=== PATIENT | female | born 1940 | race Caucasian/White ===

== ENCOUNTER 2023-08-04 08:26 | Inpatient (IN) ==
[2023-08-04 09:30] LABS: Hematocrit 34.4 % (35-45); Hemoglobin 11.1 g/dL (11.5-14.3); Mean Corpuscular Hemoglobin 27.2 pg (27-33); Mean Corpuscular Hgb Conc 32.2 g/dL (31-36); Mean Corpuscular Volume 84.7 fL (80-97); Mean Platelet Volume 8.9 fL (7.5-11.2); Platelet Count 236 10^3/uL (150-450); Red Blood Count 4.07 10^6/uL (3.63-4.92); Red Cell Distribution Width 15.8 % (12-17); White Blood Count 23.2 10^3/uL (3.8-11.8)
[2023-08-04 09:33] LABS: Urine Appearance Clear; Urine Bilirubin Negative (Negative); Urine Blood 1+ (Negative); Urine Color Colorless; Urine Glucose Negative (Negative); Urine Ketones Negative (Negative); Urine Nitrite Negative (Negative); Urine Protein Negative (Negative); Urine Specific Gravity 1.005 (1.002-1.030); Urine Urobilinogen Negative (Negative)
[2023-08-04 09:48] LABS: Albumin 3.5 g/dL (3.2-5.2); Albumin/Globulin Ratio 1.2 (1-3); Calcium 7.9 mg/dL (8.6-10.3); Creatinine, Serum 0.92 mg/dL (0.51-0.95); Globulin 2.9 g/dL (2-4); Potassium 3.3 mmol/L (3.5-5.0); Total Bilirubin 0.8 mg/dL (0.2-1.0); Total Protein 6.4 g/dL (6.4-8.9); eGFR CKD-EPI 61.8 (>60)
[2023-08-04 10:40] LABS: Urine Bacteria Absent /HPF (Absent); Urine Red Blood Cell 3+(>10/hpf) /HPF (0-Trace); Urine Squamous Epithelial Cell Present /HPF (Absent); Urine White Blood Cell Trace(0-5/hpf) /HPF (0-Trace)
[2023-08-04] MEDS: Lactated Ringers 1000 ml BAG 1,000 ML IV ONE (11:00)
[2023-08-04] MEDS: Iodixanol (CONTRAST) 320 MG/ML 100 ML SDV IV ONE (12:34)
[2023-08-04] MEDS ORDERED: Albuterol HFA INHALER 8 gm MDI INH PRN (13:20)
[2023-08-04] MEDS ORDERED: Dextrose 50% Syringe 50 ml 25 GM/50 ML SYRINGE IV PUSH PRN (14:48)
[2023-08-04 17:27] LABS: PCO2 Arterial 43 mmHg (35-45); PO2 Arterial 72 mmHg (80-100)
[2023-08-04] MEDS: cefTRIAXone 2 gm/50 mL D5W 2 GM/50 ML BAG IV SCH (17:42)
[2023-08-04 18:09] LABS: Magnesium 1.5 mg/dL (1.9-2.7)
[2023-08-04] MEDS: methylPREDNISolone SOD SUCC 40 mg/ml 1 ml VIAL IV SCH (18:09)
[2023-08-04] MEDS: Potassium Chlor 20 meq TAB.ER PO ONE (18:09)
[2023-08-04] MEDS ORDERED: Albuterol/Ipratropium NEB.SOL (2.5/0.5 MG) 3 ML NEB.SOLN INH SCH (19:00)
[2023-08-04 19:01] LABS: High Sensitivity Troponin 1 Hr 575 pg/mL (<15)
[2023-08-04] MEDS: Albuterol/Ipratropium NEB.SOL (2.5/0.5 MG) 3 ML NEB.SOLN INH SCH (19:45)
[2023-08-04] MEDS: Lactated Ringers 1000 ml BAG 750 ML IV ONE (23:15)
[2023-08-05 03:58] LABS: Urine Appearance Clear; Urine Bilirubin Negative (Negative); Urine Blood 3+ (Negative); Urine Color Yellow; Urine Glucose 3+ (>=300 mg/dL) (Negative); Urine Ketones 1+ (Negative); Urine Nitrite Negative (Negative); Urine Protein 1+ (>=30 mg/dL) (Negative); Urine Specific Gravity 1.034 (1.002-1.030); Urine Urobilinogen Negative (Negative); Urine pH 5.5 (5.0-8.0)
[2023-08-05 04:13] LABS: Hematocrit 31.8 % (35-45); Hemoglobin 10.2 g/dL (11.5-14.3); Mean Corpuscular Hgb Conc 32.2 g/dL (31-36); Mean Corpuscular Volume 83.9 fL (80-97); Mean Platelet Volume 9.6 fL (7.5-11.2); Platelet Count 211 10^3/uL (150-450); Red Blood Count 3.79 10^6/uL (3.63-4.92); Red Cell Distribution Width 15.8 % (12-17); White Blood Count 18.5 10^3/uL (3.8-11.8)
[2023-08-05 04:29] LABS: Albumin 3.6 g/dL (3.2-5.2); Albumin/Globulin Ratio 1.2 (1-3); Calcium 8.9 mg/dL (8.6-10.3); Creatinine, Serum 1.19 mg/dL (0.51-0.95); Globulin 3.1 g/dL (2-4); Magnesium 1.6 mg/dL (1.9-2.7); Potassium 4.1 mmol/L (3.5-5.0); Total Bilirubin 0.6 mg/dL (0.2-1.0); Total Protein 6.7 g/dL (6.4-8.9); eGFR CKD-EPI 45.4 (>60)
[2023-08-05 04:49] LABS: Urine Bacteria Absent /HPF (Absent); Urine Red Blood Cell 3+(>10/hpf) /HPF (0-Trace); Urine Squamous Epithelial Cell Present /HPF (Absent); Urine White Blood Cell 2+(11-20/hpf) /HPF (0-Trace)
[2023-08-05] MEDS: Magnesium Sulf 4 GM/100 ML IV 4,000 MG/100 ML BAG IVPB ONE (08:34)
[2023-08-05] MEDS ORDERED: Sulfur Hexaflouride MICROSPHR 25 MG VIAL ONE (08:42)
[2023-08-05] MEDS ORDERED: Dextrose 50% Syringe 50 ml 25 GM/50 ML SYRINGE IV PUSH PRN (08:58)
[2023-08-05] MEDS: Insulin GLARGINE 100 un/ml 10 ml VIAL SUBCUT SCH (10:18)
[2023-08-05] MEDS: Potassium Chlor 20 meq TAB.ER PO ONE (10:40)
[2023-08-05] MEDS: Digoxin IV 0.5 MG/2 ML AMP (0.25 MG/ML) IV SLOW PU ONE (10:41)
[2023-08-05] MEDS: Empagliflozin 25 MG TAB PO SCH (11:54)
[2023-08-05 12:00] LABS: TSH Ultra Thyroid Stim Horm 0.25 mcIU/mL (0.34-5.60)
[2023-08-05 12:34] LABS: High Sensitivity Troponin 1 Hr 131 pg/mL (<15)
[2023-08-05 14:06] LABS: T4, Total 8.72 mcg/dL (6.09-12.23)
[2023-08-05 14:16] LABS: Total T3 72 ng/dL (87-178)
[2023-08-06 04:39] LABS: Hematocrit 30.9 % (35-45); Hemoglobin 10.1 g/dL (11.5-14.3); Mean Corpuscular Hemoglobin 27.2 pg (27-33); Mean Corpuscular Hgb Conc 32.7 g/dL (31-36); Mean Corpuscular Volume 83.2 fL (80-97); Platelet Count 248 10^3/uL (150-450); Red Blood Count 3.71 10^6/uL (3.63-4.92); Red Cell Distribution Width 15.9 % (12-17); White Blood Count 29.5 10^3/uL (3.8-11.8)
[2023-08-06 04:56] LABS: Calcium 9.2 mg/dL (8.6-10.3); Creatinine, Serum 1.15 mg/dL (0.51-0.95); Magnesium 2.5 mg/dL (1.9-2.7); Potassium 4.5 mmol/L (3.5-5.0); eGFR CKD-EPI 47.3 (>60)
[2023-08-06] MEDS: methylPREDNISolone SOD SUCC 40 mg/ml 1 ml VIAL IV SCH (08:54)
[2023-08-07 04:20] LABS: Hematocrit 35.3 % (35-45); Hemoglobin 11.4 g/dL (11.5-14.3); Mean Corpuscular Hemoglobin 26.9 pg (27-33); Mean Corpuscular Hgb Conc 32.2 g/dL (31-36); Mean Corpuscular Volume 83.5 fL (80-97); Mean Platelet Volume 8.6 fL (7.5-11.2); Platelet Count 286 10^3/uL (150-450); Red Blood Count 4.23 10^6/uL (3.63-4.92); Red Cell Distribution Width 15.9 % (12-17); White Blood Count 26.9 10^3/uL (3.8-11.8)
[2023-08-07 04:37] LABS: Calcium 9.4 mg/dL (8.6-10.3); Creatinine, Serum 1.16 mg/dL (0.51-0.95); Magnesium 2.2 mg/dL (1.9-2.7); Potassium 4.4 mmol/L (3.5-5.0); eGFR CKD-EPI 46.8 (>60)
[2023-08-07] MEDS: Furosemide 40 mg/4 ml IV VIAL IV SLOW PU ONE (08:29)
[2023-08-07] MEDS: Furosemide 40 mg/4 ml IV VIAL ONE (08:29)
[2023-08-07] MEDS: Albuterol/Ipratropium NEB.SOL (2.5/0.5 MG) 3 ML NEB.SOLN INH PRN (08:30)
[2023-08-07] MEDS: Metoprolol Tartrate 5 mg VIAL 5 ml VIAL (1 mg/ml) ONE (08:36)
[2023-08-07] MEDS: Metoprolol Tartrate 5 mg VIAL 5 ml VIAL (1 mg/ml) IV ONE (08:37)
[2023-08-07 08:54] LABS: .Transferrin 215 mg/dL (203-362); Total Iron Binding Capacity 301 mcg/dL (250-450)
[2023-08-07 09:00] LABS: Ferritin 200.5 ng/mL (11-307)
[2023-08-08 05:55] LABS: Hematocrit 35.8 % (35-45); Hemoglobin 11.7 g/dL (11.5-14.3); Mean Corpuscular Hemoglobin 27.3 pg (27-33); Mean Corpuscular Hgb Conc 32.5 g/dL (31-36); Mean Corpuscular Volume 84.1 fL (80-97); Mean Platelet Volume 8.8 fL (7.5-11.2); Platelet Count 257 10^3/uL (150-450); Red Blood Count 4.26 10^6/uL (3.63-4.92); Red Cell Distribution Width 15.6 % (12-17); White Blood Count 20.9 10^3/uL (3.8-11.8)
[2023-08-08 06:11] LABS: Albumin 3.6 g/dL (3.2-5.2); Albumin/Globulin Ratio 1.2 (1-3); Calcium 9.2 mg/dL (8.6-10.3); Creatinine, Serum 1.34 mg/dL (0.51-0.95); Globulin 3.1 g/dL (2-4); Potassium 3.9 mmol/L (3.5-5.0); Total Bilirubin 0.4 mg/dL (0.2-1.0); Total Protein 6.7 g/dL (6.4-8.9); eGFR CKD-EPI 39.3 (>60)
[2023-08-08 07:27] LABS: ABS Eosinophils 1.6 10^3/uL (0.0-0.5); ABS Lymphocytes 0.8 10^3/uL (1.0-4.8); ABS Monocytes 1.6 10^3/uL (0.0-0.9); ABS Neutrophils 16.9 10^3/uL (1.5-7.6); ABS Nucleated RBC 0.03 10^3/ul; Eosinophil % 7.6 %; Lymphocyte % 3.7 %; Nucleated Red Blood Cells % 0.1 %/100WBC (0.0-0.8)
[2023-08-08 07:28] LABS: RBC Morphology Normal (Normal)
[2023-08-08] MEDS: Ferric Gluconate IV 250 MG in NS 0.9% 250 ml 200 ML IVPB SCH (18:09)
[2023-08-09 06:33] LABS: Hematocrit 38.1 % (35-45); Hemoglobin 12.2 g/dL (11.5-14.3); Mean Corpuscular Hemoglobin 27.1 pg (27-33); Mean Corpuscular Hgb Conc 32.1 g/dL (31-36); Mean Corpuscular Volume 84.5 fL (80-97); Platelet Count 283 10^3/uL (150-450); Red Blood Count 4.51 10^6/uL (3.63-4.92); Red Cell Distribution Width 15.7 % (12-17); White Blood Count 22.5 10^3/uL (3.8-11.8)
[2023-08-09 06:55] LABS: Calcium 8.9 mg/dL (8.6-10.3); Creatinine, Serum 1.24 mg/dL (0.51-0.95); Potassium 3.9 mmol/L (3.5-5.0); eGFR CKD-EPI 43.2 (>60)
[2023-08-09 07:02] LABS: Magnesium 2.1 mg/dL (1.9-2.7)
[2023-08-09 07:56] LABS: ABS Basophils 0.1 10^3/uL (0.0-0.1); ABS Eosinophils 1.6 10^3/uL (0.0-0.5); ABS Lymphocytes 1.5 10^3/uL (1.0-4.8); ABS Monocytes 1.7 10^3/uL (0.0-0.9); ABS Neutrophils 17.6 10^3/uL (1.5-7.6); ABS Nucleated RBC 0.01 10^3/ul; Eosinophil % 7.1 %; Lymphocyte % 6.7 %
[2023-08-09] MEDS: Potassium Chlor 20 meq TAB.ER PO ONE (08:37)
[2023-08-09] MEDS ORDERED: Aminophylline 25 MG/ML VIAL ONE (12:52)
[2023-08-09] MEDS ORDERED: Regadenoson 0.4 MG/5 ML SYRINGE ONE (12:52)
[2023-08-10 07:05] LABS: Hematocrit 36.2 % (35-45); Hemoglobin 11.9 g/dL (11.5-14.3); Mean Corpuscular Hemoglobin 27.5 pg (27-33); Mean Corpuscular Hgb Conc 32.8 g/dL (31-36); Platelet Count 280 10^3/uL (150-450); Red Blood Count 4.31 10^6/uL (3.63-4.92); Red Cell Distribution Width 15.9 % (12-17); White Blood Count 19.8 10^3/uL (3.8-11.8)
[2023-08-10 07:29] LABS: C Reactive Protein 22.33 mg/L (<8.01); Calcium 8.9 mg/dL (8.6-10.3); Creatinine, Serum 1.17 mg/dL (0.51-0.95); Magnesium 2.1 mg/dL (1.9-2.7); Phosphorus 4.7 mg/dL (2.5-5.0); Potassium 4.4 mmol/L (3.5-5.0); eGFR CKD-EPI 46.3 (>60)
[2023-08-10 07:49] LABS: ABS Basophils 0.2 10^3/uL (0.0-0.1); ABS Eosinophils 1.3 10^3/uL (0.0-0.5); ABS Lymphocytes 2.8 10^3/uL (1.0-4.8); ABS Monocytes 1.9 10^3/uL (0.0-0.9); ABS Neutrophils 13.6 10^3/uL (1.5-7.6); ABS Nucleated RBC 0.01 10^3/ul; Eosinophil % 6.6 %; Lymphocyte % 14.1 %
[2023-08-10 10:59] VITALS: BP 139/74
== END 2023-08-10 14:34 | disposition home or self-care (01) | DRG 871 ==
LOC: ED 08:26 → EDHOLD 13:16 → SUATTDRO 13:16 → EDHOLD 15:47 → ICU 15:56 → MEDTELE 08-08 09:50
PROVIDERS: ADMIT Internal Medicine Pulmonary Disease; ATTEND Internal Medicine